=== PATIENT | female | born 1995 | race Caucasian/White ===

== ENCOUNTER → 2019-10-05 | Outpatient (CLI) | payer OTHER ==
--- NOTE | 2019-10-06 22:28 | CT ---
EXAMINATION TYPE: CT brain w con DATE OF EXAM: 10/05/2019 COMPARISON: CT brain July 10, 2010. HISTORY: Head pressure. Complicated headaches with nausea and vomiting. CT DLP: 999.8 mGycm. Automated Exposure Control for Dose Reduction was Utilized. TECHNIQUE: CT scan of the head is performed with IV Contrast, patient injected with 100 mL of Isovu e 300. FINDINGS: The ventricles and sulci are within normal limits in size. Vivar-white matter differentiat ion is maintained. Postcontrast images show no suspicious enhancing intraparenchymal mass. The globes are intact and the visualized sinuses are clear. There are low-lying cerebellar tonsils extending at least to the level of foramen magnum on the left axial images obtained. IMPRESSION: Cannot rule out underlying Chiari type I malformation. Consider follow-up MRI to better e valuate.
== END | disposition home or self-care (01) ==
LOC: RADCTMAIN 08:39
PROVIDERS: ATTEND Family Medicine
DX: G44.59 Other complicated headache syndrome (principal); R11.2 Nausea with vomiting, unspecified
CPT/HCPCS: 70460; Q9967

== ENCOUNTER 2019-10-09 13:37 | Observation (INO) | payer OTHER ==
[2019-10-09] MEDS ORDERED: MORPHINE SULFATE 4 MG/ML SYRINGE IVP STA ×2 (14:13→18:15)
[2019-10-09] MEDS ORDERED: SODIUM CHLORIDE 0.9% 1,000 ML IV ONE (14:13)
[2019-10-09] MEDS ORDERED: ONDANSETRON 4 MG/2 ML VIAL IVP STA (14:13)
[2019-10-09] MEDS ORDERED: KETOROLAC 30 MG/ML 1 ML VIAL IVP STA (14:13)
[2019-10-09] MEDS: SODIUM CHLORIDE 0.9% 1,000 ML IV SCH (14:29)
[2019-10-09 14:36] LABS: Appearance,Urine Clear (Clear); Bilirubin,Urine Negative (Negative); Blood,Urine Negative (Negative); Color,Urine Yellow; Glucose,Urine (UA) Negative (Negative); Ketones,Urine Trace (Negative); Leukocyte Esterase,Urine Negative (Negative); Nitrite,Urine Negative (Negative); Protein,Urine Negative (Negative); Specific Gravity,Urine 1.013 (1.001-1.035); Urobilinogen,Urine <2.0 mg/dL (<2.0)
[2019-10-09 14:40] LABS: Basophils # (A) 0.1 k/uL (0-0.2); Basophils % (A) 0 %; Eosinophils # (A) 0.1 k/uL (0-0.7); Eosinophils % (A) 1 %; HCT 42.7 % (34.0-46.0); HGB 14.6 gm/dL (11.4-16.0); Lymphocytes # (A) 2.1 k/uL (1.0-4.8); Lymphocytes % (A) 12 %; MCH 32.5 pg (25.0-35.0); MCHC 34.2 g/dL (31.0-37.0); MCV 95.1 fL (80.0-100.0); Mean Platelet Volume 7.5; Monocytes # (A) 0.7 k/uL (0-1.0); Monocytes % (A) 4 %; Neutrophils # (A) 14.5 k/uL (1.3-7.7); Neutrophils % (A) 83 %; Platelet Count 370 k/uL (150-450); RBC 4.49 m/uL (3.80-5.40); WBC 17.5 k/uL (3.8-10.6)
[2019-10-09 14:49] LABS: ALT 22 U/L (4-34); AST 24 U/L (14-36); African American GFR (CKD) >90 (>60 ml/min/1.73 sqM); Albumin 4.4 g/dL (3.5-5.0); Alkaline Phosphatase 56 U/L (38-126); Amylase 49 U/L (30-110); Anion Gap 6 mmol/L; Blood Urea Nitrogen 9 mg/dL (7-17); Calcium 9.4 mg/dL (8.4-10.2); Carbon Dioxide 26 mmol/L (22-30); Chloride 107 mmol/L (98-107); Glucose 97 mg/dL (74-99); Non-African American GFR(CKD) >90 (>60 ml/min/1.73 sqM); Potassium 4.3 mmol/L (3.5-5.1); Sodium 139 mmol/L (137-145); Total Bilirubin 0.5 mg/dL (0.2-1.3); Total Protein 7.3 g/dL (6.3-8.2)
[2019-10-09 14:51] LABS: INR 0.9 (<1.2); Partial Thromboplastin Time 26.3 sec (22.0-30.0); Prothrombin Time 10.1 sec (9.0-12.0)
--- NOTE | 2019-10-09 15:06 | ED ---
Abdominal Pain HPI - General Chief Complaint: Abdominal Pain Stated Complaint: Abd Pain Time Seen by Provider: 10/09/19 14:06 Source: patient, RN notes reviewed, old records reviewed Mode of arrival: ambulatory Limitations: no limitations - History of Present Illness Initial Comments: Patient is a 24-year-old female who presents emergency Department today with diffuse guarding and abdominal pain. She reports it feels like a sharp stabbing pain on her right lower side. Complains of nausea and vomiting as well. Denies any changes in urination. Patient states that she's had no specific fever that she is aware of. - Related Data Home Medications Medication Instructions Recorded Confirmed Amoxic-Pot Clav 500-125 mg 1 tab PO BID 10/09/19 10/09/19 [Augmentin 500-125 mg] Aspirin/Acetaminophen/Caffeine 1 - 2 tab PO DAILY PRN 10/09/19 10/09/19 [Excedrin Migraine Caplet] Allergies Allergy/AdvReac Type Severity Reaction Status Date / Time No Known Allergies Allergy Verified 10/09/19 16:34 Review of Systems ROS Statement: Those systems with pertinent positive or pertinent negative responses have been documented in the HPI. ROS Other: All systems not noted in ROS Statement are negative. Past Medical History Past Medical History: No Reported History Additional Past Medical History / Comment(s): Obstetric history: She has had 2 previous normal vaginal deliveries. This is her third . A+, abs neg, Rub Imm, RPR NR, Hep B neg, HIV NR, toxo neg. normal 1hr GTT. She has been measuring small but NSTs have been reactive and 8/8 BPPs with MFM. GBS neg. History of Any Multi-Drug Resistant Organisms: None Reported Past Surgical History: No Surgical Hx Reported Past Anesthesia/Blood Transfusion Reactions: No Reported Reaction Past Psychological History: No Psychological Hx Reported Smoking Status: Current every day smoker Past Alcohol Use History: None Reported Past Drug Use History: None Reported General Exam - General Exam Comments Initial Comments: 24-year-old female. Moderate discomfort. Tearful. Limitations: no limitations Head exam: Present: atraumatic, normocephalic, normal inspection Eye exam: Present: normal appearance, PERRL, EOMI. Absent: scleral icterus, conjunctival injection, periorbital swelling ENT exam: Present: normal exam, mucous membranes moist Neck exam: Present: tenderness Respiratory exam: Present: normal lung sounds bilaterally. Absent: respiratory distress, wheezes, rales, rhonchi, stridor Cardiovascular Exam: Present: regular rate, normal rhythm, normal heart sounds. Absent: systolic murmur, diastolic murmur, rubs, gallop, clicks GI/Abdominal exam: Present: soft, tenderness (RLQ, guatdring ), normal bowel sounds. Absent: distended, guarding, rebound, rigid Extremities exam: Present: normal inspection, full ROM, normal capillary refill. Absent: tenderness, pedal edema, joint swelling, calf tenderness Back exam: Present: normal inspection Neurological exam: Present: alert, oriented X3, CN II-XII intact Psychiatric exam: Present: normal affect, normal mood Skin exam: Present: warm, dry, intact, normal color. Absent: rash Course Vital Signs 10/09/19 10/09/19 13:38 16:18 Temperature 98.2 F Pulse Rate 81 94 Respiratory 16 18 Rate Blood Pressure 132/88 109/58 O2 Sat by Pulse 99 98 Oximetry Medical Decision Making - Medical Decision Making Patient is a 24 old female presents to return today with severe right-sided abdominal pain for the past 2 days. She guarding and tenderness on exam. Nourished, clinical concern for appendicitis. Urinalysis is negative for infection. HCG is negative. Patient's CBC is elevated. Blood cultures are obtained. Her pelvic exam was benign. No significant adnexal tenderness. No significant discharge. Pelvic cultures were obtained. I discussed this with Dr. Contreras after CAT scan shows inflammation around the cecum concern for possibility of appendicitis. However patient's appendix is reviewed to be normal on the CT. She did recommend putting the Patient on antibiotics and admitting the Patient patient's primary care physician. I am waiting call from Dr. Hussein. I did discuss the case with Dr. Ji for case management. - Lab Data Result diagrams: 10/09/19 14:10 10/09/19 14:10 Lab Results 10/09/19 10/09/19 10/09/19 Range/Units 14:10 14:10 14:10 WBC 17.5 H (3.8-10.6) k/uL RBC 4.49 (3.80-5.40) m/uL Hgb 14.6 (11.4-16.0) gm/dL Hct 42.7 (34.0-46.0) % MCV 95.1 (80.0-100.0) fL MCH 32.5 (25.0-35.0) pg MCHC 34.2 (31.0-37.0) g/dL RDW 12.0 (11.5-15.5) % Plt Count 370 (150-450) k/uL Neutrophils % 83 % Lymphocytes % 12 % Monocytes % 4 % Eosinophils % 1 % Basophils % 0 % Neutrophils # 14.5 H (1.3-7.7) k/uL Lymphocytes # 2.1 (1.0-4.8) k/uL Monocytes # 0.7 (0-1.0) k/uL Eosinophils # 0.1 (0-0.7) k/uL Basophils # 0.1 (0-0.2) k/uL PT 10.1 (9.0-12.0) sec INR 0.9 (<1.2) APTT 26.3 (22.0-30.0) sec Sodium 139 (137-145) mmol/L Potassium 4.3 (3.5-5.1) mmol/L Chloride 107 (98-107) mmol/L Carbon Dioxide 26 (22-30) mmol/L Anion Gap 6 mmol/L BUN 9 (7-17) mg/dL Creatinine 0.64 (0.52-1.04) mg/dL Est GFR (CKD-EPI)AfAm >90 (>60 ml/min/1.73 sqM) Est GFR (CKD-EPI)NonAf >90 (>60 ml/min/1.73 sqM) Glucose 97 (74-99) mg/dL Calcium 9.4 (8.4-10.2) mg/dL Total Bilirubin 0.5 (0.2-1.3) mg/dL AST 24 (14-36) U/L ALT 22 (4-34) U/L Alkaline Phosphatase 56 (38-126) U/L Total Protein 7.3 (6.3-8.2) g/dL Albumin 4.4 (3.5-5.0) g/dL Amylase 49 (30-110) U/L Lipase 58 (23-300) U/L Urine Color Urine Appearance (Clear) Urine pH (5.0-8.0) Ur Specific [place] (1.001-1.035) Urine Protein (Negative) Urine Glucose (UA) (Negative) Urine Ketones (Negative) Urine Blood (Negative) Urine Nitrite (Negative) Urine Bilirubin (Negative) Urine Urobilinogen (<2.0) mg/dL Ur Leukocyte Esterase (Negative) Urine HCG, Qual (Not Detectd) 10/09/19 10/09/19 Range/Units 14:10 14:10 WBC (3.8-10.6) k/uL RBC (3.80-5.40) m/uL Hgb (11.4-16.0) gm/dL Hct (34.0-46.0) % MCV (80.0-100.0) fL MCH (25.0-35.0) pg MCHC (31.0-37.0) g/dL RDW (11.5-15.5) % Plt Count (150-450) k/uL Neutrophils % % Lymphocytes % % Monocytes % % Eosinophils % % Basophils % % Neutrophils # (1.3-7.7) k/uL Lymphocytes # (1.0-4.8) k/uL Monocytes # (0-1.0) k/uL Eosinophils # (0-0.7) k/uL Basophils # (0-0.2) k/uL PT (9.0-12.0) sec INR (<1.2) APTT (22.0-30.0) sec Sodium (137-145) mmol/L Potassium (3.5-5.1) mmol/L Chloride (98-107) mmol/L Carbon Dioxide (22-30) mmol/L Anion Gap mmol/L BUN (7-17) mg/dL Creatinine (0.52-1.04) mg/dL Est GFR (CKD-EPI)AfAm (>60 ml/min/1.73 sqM) Est GFR (CKD-EPI)NonAf (>60 ml/min/1.73 sqM) Glucose (74-99) mg/dL Calcium (8.4-10.2) mg/dL Total Bilirubin (0.2-1.3) mg/dL AST (14-36) U/L ALT (4-34) U/L Alkaline Phosphatase (38-126) U/L Total Protein (6.3-8.2) g/dL Albumin (3.5-5.0) g/dL Amylase (30-110) U/L Lipase (23-300) U/L Urine Color Yellow Urine Appearance Clear (Clear) Urine pH 5.0 (5.0-8.0) Ur Specific [place] 1.013 (1.001-1.035) Urine Protein Negative (Negative) Urine Glucose (UA) Negative (Negative) Urine Ketones Trace H (Negative) Urine Blood Negative (Negative) Urine Nitrite Negative (Negative) Urine Bilirubin Negative (Negative) Urine Urobilinogen <2.0 (<2.0) mg/dL Ur Leukocyte Esterase Negative (Negative) Urine HCG, Qual Not Detected (Not Detectd) - Radiology Data Radiology results: report reviewed Some fluid around the cecum. If what appears to be panic seems normal. However clinical management for acute appendicitis is recommended. Minimal fluid within the pelvis could be physiologic. Uterus is normal. Adnexal regions appeared normal. Some free fluid within the pelvis. Disposition Clinical Impression: Acute abdominal pain in right lower quadrant, Leukocytosis Disposition: ADMITTED IP TO THIS [facility] Condition: Stable Is patient prescribed a controlled substance at d/c from ED?: No Referrals: Annalisa Li MD [Primary Care Provider] - 1-2 days Time of Disposition: 18:15
--- NOTE | 2019-10-09 15:53 | CT ---
EXAMINATION TYPE: CT abdomen pelvis w con DATE OF EXAM: 10/09/2019 COMPARISON: 12/20/2013 INDICATION: Pelvic pain for 2-3 days. DLP: 577.1 mGycm, Automated exposure control for dose reduction was used. CONTRAST: 100 mL of Isovue 300. Study performed without Oral Contrast TECHNIQUE: Axial images were obtained from above the diaphragm to the pubic rami in the axial plane a t 5 mm thick sections. Reconstructed images are reviewed on the computer in the coronal plane. FINDINGS: Limited CT sections are obtained the lung bases. The lung bases are clear. CT ABDOMEN: Liver: Normal Spleen: Normal Pancreas: Normal Adrenal glands: The adrenal glands are normal. Gallbladder: Normal Kidneys: No masses are evident. No hydronephrosis is present. No cysts are present. Delayed images were obtained through the kidneys, which remain unremarkable. Aorta: Normal Inferior vena cava: Normal. CT PELVIS: Loops of bowel within the abdomen and pelvis are normal. There are loops of bowel which are incom pletely distended or lack oral contrast limiting their evaluation. Appendix: Normal as visualized. There is fluid surrounding the cecum. Clinical management for appendi citis is recommended. It appears to be the appendix appears normal however. An air-filled appendix is not evident no dilated tubular structure inflammatory change is evident. Urinary bladder: Normal. Genitourinary structures: Uterus is normal. Adnexal regions appear within normal limits. There is barbara e free fluid within the pelvis. This can be physiologic. Osseous structures: No suspicious lytic or sclerotic lesion is evident. 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 IMPRESSIONS: 1. There is some fluid surrounding the cecum. What appears to be the appendix is normal. However, cl inical management for acute appendicitis is recommended. 2. Minimal fluid within the pelvis can be physiologic.
[2019-10-09] MEDS ORDERED: PIPERACILLIN-TAZOBACTAM 3.375 GM in SODIUM CHLORIDE 0.9% 100 ML IVPB STA (16:40)
[2019-10-09] MEDS ORDERED: NALOXONE 0.4 MG/ML 1 ML VIAL IV PRN (18:15)
[2019-10-09] MEDS ORDERED: IBUPROFEN 400 MG TAB PO PRN (18:15)
[2019-10-09] MEDS: MORPHINE SULFATE 4 MG/ML SYRINGE IV PRN (22:22)
[2019-10-09] MEDS: ONDANSETRON 4 MG/2 ML VIAL IVP PRN (22:22)
[2019-10-09] MEDS: ACETAMINOPHEN TAB 325 MG TAB PO PRN (22:27)
[2019-10-10] MEDS: SODIUM CHLORIDE 0.9% 1,000 ML IV SCH ×2 (03:04→16:59)
[2019-10-10] MEDS: KETOROLAC 30 MG/ML 1 ML VIAL IVP PRN ×2 (03:39→17:18)
[2019-10-10] MEDS: PIPERACILLIN-TAZOBACTAM 3.375 GM in SODIUM CHLORIDE 0.9% 100 ML IVPB SCH ×2 (08:51→17:22)
[2019-10-10] MEDS: PANTOPRAZOLE 40 MG/10 ML VIAL IV SCH (08:51)
[2019-10-10] MEDS: MORPHINE SULFATE 4 MG/ML SYRINGE IV PRN (08:52)
[2019-10-10] MEDS: ONDANSETRON 4 MG/2 ML VIAL IVP PRN (08:52)
[2019-10-10 10:01] LABS: Basophils % (A) 0 %; Eosinophils # (A) 0.2 k/uL (0-0.7); Eosinophils % (A) 1 %; HCT 37.2 % (34.0-46.0); HGB 12.4 gm/dL (11.4-16.0); Lymphocytes # (A) 2.2 k/uL (1.0-4.8); Lymphocytes % (A) 19 %; MCH 32.4 pg (25.0-35.0); MCHC 33.2 g/dL (31.0-37.0); MCV 97.7 fL (80.0-100.0); Mean Platelet Volume 8.2; Monocytes # (A) 0.6 k/uL (0-1.0); Monocytes % (A) 5 %; Neutrophils # (A) 8.6 k/uL (1.3-7.7); Neutrophils % (A) 73 %; Platelet Count 278 k/uL (150-450); RBC 3.81 m/uL (3.80-5.40); RDW 12.2 % (11.5-15.5); WBC 11.8 k/uL (3.8-10.6)
[2019-10-10 10:11] LABS: ALT 16 U/L (4-34); AST 20 U/L (14-36); African American GFR (CKD) >90 (>60 ml/min/1.73 sqM); Albumin 3.2 g/dL (3.5-5.0); Alkaline Phosphatase 48 U/L (38-126); Anion Gap 6 mmol/L; Blood Urea Nitrogen 8 mg/dL (7-17); Calcium 8.6 mg/dL (8.4-10.2); Carbon Dioxide 24 mmol/L (22-30); Chloride 110 mmol/L (98-107); Glucose 94 mg/dL (74-99); Non-African American GFR(CKD) >90 (>60 ml/min/1.73 sqM); Potassium 3.9 mmol/L (3.5-5.1); Sodium 140 mmol/L (137-145); Total Bilirubin 0.5 mg/dL (0.2-1.3); Total Protein 5.7 g/dL (6.3-8.2)
--- NOTE | 2019-10-10 10:28 | P.HPIM ---
History of Present Illness H&P Date: 10/10/19 This is a 24-year-old female patient of Dr. Li. Patient presented to the ER with complaints of right lower quadrant pain that is described as sharp and stabbing with nausea and vomitingthat started on Monday. Patient denies any recent fever or sick contacts. Patient denies diarrhea. Patient denies any burning with urination. Patient denies any significant medical history. Patient does have 3 children at home and current nicotine dependence. CT of abdomen and pelvis completed showing some fluid surrounding the cecum. What appears to be the appendix is normal however clinical management for acute appendicitis is recommended minimal fluid within the pelvis can be physiologic. Per ER note these results were reviewed with Dr. Contreras no need for appendectomy at that time. amylase and lipase within normal limits liver enzymes within normal limits. Per nursing staff patient requesting Dr. quintanilla of Dr. Contreras. Dr. quintanilla unavailable. Consult placed for Dr. hankins per surgical consult. Patient has been started on Zosyn for IV antibiotics. Patient did have a white blood cell count of 17.5. UA was negative for urinary tract infection patient was tested for STI including trichomonas which was negative. Gonorrhea and chlamydia currently pending blood culture has been or dered. At this time patient is still having right lower quadrant pain and tenderness to palpation patient is managed with morphine for pain control. Diet will be advanced to clear liquid diet. Awaiting surgical input. Patient denies chest pain or shortness of breath. Patient denies any urinary burning or frequency. Plan of care was discussed in detail with patient. Review of Systems please refer to HPI otherwise unremarkable Past Medical History Past Medical History: No Reported History Additional Past Medical History / Comment(s): Obstetric history: She has had 2 previous normal vaginal deliveries. This is her third . A+, abs neg, Rub Imm, RPR NR, Hep B neg, HIV NR, toxo neg. normal 1hr GTT. She has been measuring small but NSTs have been reactive and 8/8 BPPs with MFM. GBS neg. History of Any Multi-Drug Resistant Organisms: None Reported Past Surgical History: No Surgical Hx Reported Past Anesthesia/Blood Transfusion Reactions: No Reported Reaction Past Psychological History: No Psychological Hx Reported Smoking Status: Current every day smoker Past Alcohol Use History: None Reported Past Drug Use History: None Reported Medications and Allergies Home Medications Medication Instructions Recorded Confirmed Type Amoxic-Pot Clav 500-125 mg 1 tab PO BID 10/09/19 10/09/19 History [Augmentin 500-125 mg] Aspirin/Acetaminophen/Caffeine 1 - 2 tab PO DAILY PRN 10/09/19 10/09/19 History [Excedrin Migraine Caplet] Allergies Allergy/AdvReac Type Severity Reaction Status Date / Time No Known Allergies Allergy Verified 10/09/19 16:34 Physical Exam Vitals: Vital Signs Temp Pulse Pulse Resp BP BP Pulse Ox 10/10/19 07:00 98.3 F 63 17 96/44 98 10/10/19 01:59 97.8 F 112 H 16 124/66 98 10/09/19 21:38 98.3 F 78 16 129/65 95 10/09/19 20:35 83 18 102/58 98 10/09/19 16:18 94 18 109/58 98 10/09/19 13:38 98.2 F 81 16 132/88 99 Intake and Output 10/09/19 10/10/19 10/10/19 22:59 06:59 14:59 Intake Total 150 800 Balance 150 800 Intake: Intake, IV Titration 150 800 Amount Sodium Chloride 0.9% 1, 150 800 000 ml @ 100 mls/hr IV . Q10H [facility] Rx#:[id number] Other: Weight 53.977 kg Head normocephalic Neck supple Lungs clear to auscultation bilaterally no wheezing or crackles Heart regular rate and rhythm S1-S2, no rub or gallop Abdomen is soft, right lower quadrant tenderness to palpation nondistended positive bowel sounds no hepatosplenomegaly Extremities no edema Neuro alert and orientated to 3 Results CBC & Chem 7: 10/10/19 05:47 10/10/19 05:47 Labs: Abnormal Lab Results - Last 24 Hours (Table) 10/09/19 10/09/19 10/10/19 Range/Units 14:10 14:10 05:47 WBC 17.5 H 11.8 H (3.8-10.6) k/uL Neutrophils # 14.5 H 8.6 H (1.3-7.7) k/uL Chloride (98-107) mmol/L Total Protein (6.3-8.2) g/dL Albumin (3.5-5.0) g/dL Urine Ketones Trace H (Negative) 10/10/19 Range/Units 05:47 WBC (3.8-10.6) k/uL Neutrophils # (1.3-7.7) k/uL Chloride 110 H (98-107) mmol/L Total Protein 5.7 L (6.3-8.2) g/dL Albumin 3.2 L (3.5-5.0) g/dL Urine Ketones (Negative) Microbiology - Last 24 Hours (Table) 10/09/19 17:56 Genital Culture - Preliminary Vaginal Thrombosis Risk Factor Assmnt - Choose All That Apply Any of the Below Risk Factors Present?: No Other Risk Factors: No Other congenital or acquired thrombophilia - If yes, enter type in comment: No Thrombosis Risk Factor Assessment Level: Very Low Risk Assessment and Plan Assessment: 1. Acute right abdominal pain with leukocytosis. Amylase and lipase within normal limi initial white blood cell 17.5. UA negative for infection.cT of abdomen and pelvis completed showing some fluid surrounding the cecum. What appears be the appendix is normal. However clinical management for acute ap pendicitis is recommended. Minimum fluid within the pelvis can be physiologic. Patient requesting Dr. Quintanilla to be consulted Dr. quintanilla unavailable Dr. Hatch has been consulted. Patient has been started on Zosyn for IV antibiotics blood culture has been ordered. white blood cell has improved to 11.8. 2. History of 3 normal vaginal deliveries 3. Nicotine dependence. Patient educated greater than 3 minutes smoking cessation.patient declined nicotine patch at this time DVT prophylaxis SCDs until cleared by surgical services. GI prophylaxis Protonix continue IV antibiotics Zosyn Surgical services have been consulted Blood culture pending Time with Patient: Greater than 30 (Greater than 60% of the total time spent in counseling and coordination of care. I performed an examination of the patient and discussed their management with the Nurse Practitioner. I have reviewed the Nurse Practitioner's notes and agree with the documented findings and plan of care)
[2019-10-10] MEDS ORDERED: SODIUM CHLORIDE 0.9% 1,000 ML IV ONE (12:06)
--- NOTE | 2019-10-10 13:08 | US ---
EXAMINATION TYPE: US transvaginal DATE OF EXAM: 10/10/2019 COMPARISON: CT 10/09/19 CLINICAL HISTORY: right lower abdominal pain, possible ovarian cyst. TECHNIQUE: Transvaginal (TV). Transabdominal sonographic images of the pelvis were acquired. Trans vaginal sonographic images were medically necessary to better assess the following anatomy: Date of LMP: 09/11/2019 EXAM MEASUREMENTS: Uterus: 8.7 x 5.0 x 4.1 cm Endometrial Stripe: 0.6 cm Right Ovary: 2.8 x 2.3 x 1.8 cm Left Ovary: 2.2 x 1.9 x 1.6 cm 1. Uterus: Anteverted wnl 2. Endometrium: wnl 3. Right Ovary: wnl, with adjacent free fluid 4. Left Ovary: wnl Spectral, color and waveform doppler imaging shows good arterial and venous flow within the ovaries ; there is no evidence for ovarian torsion. 5. Bilateral Adnexa: wnl 6. Posterior cul-de-sac: Tiny amount of free fluid IMPRESSION: Scant amount of fluid in the pelvis, likely physiologic in nature. This may be sequela of a recently ruptured ovarian cyst. Otherwise unremarkable pelvic ultrasound.
[2019-10-10 15:03] LABS: C. trachomatis,PCR Negative (Neg,Equiv); Chlamydia trachomatis Source Cervix; N. gonorrhoeae,PCR Negative (Neg,Equiv); Neisseria Source Cervix
--- NOTE | 2019-10-10 15:09 | P.PN ---
<Esmer Lobo - Last Filed: 10/10/19 15:02> Subjective Progress Note Date: 10/10/19 CHIEF COMPLAINT: right lower quadrant abdominal pain HISTORY OF PRESENT ILLNESS: Patient seen and examined at the bedside with Dr. Lindsey. Patient reports improvement and right lower quadrant abdominal pain today. She denies nausea or vomiting.vital signs are stable. She is afebrile. WBC 11.8. PHYSICAL EXAM: VITAL SIGNS: reviewed GENERAL: Well-developed in no acute distress. HEENT: No sclera icterus. Extraocular movements grossly intact. Moist buccal mucosa. Head is atraumatic, normocephalic. Hears conversational speech. No nasal drainage. NECK: Supple without lymphadenopathy. CHEST: Non-labored respirations and equal bilateral excursions. CARDIOVASCULAR: Regular rate with regular rhythm. Palpable 2+ radial pulses. ABDOMEN: Soft. Nondistended. minimal tenderness upon palpation of right lower quadrant MUSCULOSKELETAL: No clubbing, cyanosis or edema. NEUROLOGIC: No focal or lateralizing signs. Cranial nerves II through XII grossly intact. PSYCH: Appropriate affect. Alert and oriented to person, place and time. SKIN: Well perfused. Good skin turgor. ASSESSMENT: 1. Right lower quadrant abdominal pain, acute appendicitis unlikely, suspect ruptured ovarian cyst PLAN: -Pain control. Add Toradol -1 L normal saline bolus -Increase diet as tolerated -Obtain transvaginal ultrasound -No surgical intervention recommended at this time. Patient agreeable to plan. Nurse practitioner note has been reviewed by physician. Signing provider agrees with the documented findings, assessment, and plan of care. Objective - Vital Signs Vital signs: Vital Signs Temp 98.3 F 10/10/19 07:00 Pulse 63 10/10/19 07:00 Resp 17 10/10/19 07:00 BP 96/44 10/10/19 07:00 Pulse Ox 98 10/10/19 07:00 Intake & Output 10/09/19 10/10/19 10/10/19 18:59 06:59 18:59 Intake Total 950 Balance 950 Weight 53.977 kg 53.977 kg Intake: Intake, IV Titration 950 Amount Sodium Chloride 0.9% 1, 950 000 ml @ 100 mls/hr IV . Q10H [facility] Rx#:[id number] - Labs CBC & Chem 7: 10/10/19 05:47 10/10/19 05:47 Labs: Abnormal Lab Results - Last 24 Hours (Table) 10/10/19 10/10/19 Range/Units 05:47 05:47 WBC 11.8 H (3.8-10.6) k/uL Neutrophils # 8.6 H (1.3-7.7) k/uL Chloride 110 H (98-107) mmol/L Total Protein 5.7 L (6.3-8.2) g/dL Albumin 3.2 L (3.5-5.0) g/dL Microbiology - Last 24 Hours (Table) 10/09/19 17:56 Genital Culture - Preliminary Vaginal <Jessica Lindsey N - Last Filed: 10/19/19 18:30> Subjective As above. Her abdominal pain is improved. Objective - Vital Signs Vital signs: Vital Signs Temp 98.3 F 10/11/19 07:00 Pulse 76 10/11/19 08:00 Resp 15 10/11/19 08:00 BP 107/68 10/11/19 07:00 Pulse Ox 99 10/11/19 07:00 - Labs CBC & Chem 7: 10/11/19 08:26 10/11/19 08:26 Assessment and Plan (1) Mittelschmerz Status: Acute Code(s): N94.0 - MITTELSCHMERZ SNOMED Code(s): 83456698 (2) Right lower quadrant abdominal pain Status: Acute Code(s): R10.31 - RIGHT LOWER QUADRANT PAIN SNOMED Code(s): 653860308 (3) Ovarian cyst rupture Status: Acute Code(s): N83.209 - UNSPECIFIED OVARIAN CYST, UNSPECIFIED SIDE SNOMED Code(s): 41012355 (4) Rupture of cyst of right ovary Status: Acute Code(s): N83.201 - UNSPECIFIED OVARIAN CYST, RIGHT SIDE SNOMED Code(s): 13792209002754248
[2019-10-10] MEDS: ACETAMINOPHEN TAB 325 MG TAB PO PRN (21:33)
[2019-10-11] MEDS: PIPERACILLIN-TAZOBACTAM 3.375 GM in SODIUM CHLORIDE 0.9% 100 ML IVPB SCH ×2 (00:35→08:03)
[2019-10-11] MEDS: KETOROLAC 30 MG/ML 1 ML VIAL IVP PRN (00:35)
[2019-10-11] MEDS: SODIUM CHLORIDE 0.9% 1,000 ML IV SCH (02:04)
[2019-10-11] MEDS ORDERED: KETOROLAC 30 MG/ML 1 ML VIAL IVP SCH (07:00)
[2019-10-11 07:38] VITALS: BP 107/68; PULSE 76; RESP 15; TEMP 98.3
--- NOTE | 2019-10-11 08:03 | P.PN ---
Subjective Progress Note Date: 10/11/19 CHIEF COMPLAINT: Right lower quadrant abdominal pain HISTORY OF PRESENT ILLNESS: The patient is a 24-year-old female who was admitted secondary to intractable right lower quadrant abdominal pain. Yesterday she completed a transvaginal ultrasound. She also confirms she is started her menstrual cycle last night. Abdominal pain is completely resolved. She feels well. She is eager to go home. ROS: No reports of nausea and vomiting. No fevers or chills. No new chest pain. No productive sputum PHYSICAL EXAM: VITAL SIGNS: Reviewed CONSTITUTIONAL: Well developed and in no acute distress. EYES: Conjuctivae without sclera icterus. Extraocular movements grossly intact. HEAD, EARS, NOSE, THROAT: Moist buccal mucosa. Head is atraumatic, normocephalic. Hears conversational speech. No nasal drainage. RESPIRATORY: Non-labored respirations and equal bilateral excursions. CARDIOVASCULAR: Palpable 2+ radial pulses. Regular rate. Regular rhythm. ABDOMEN: No peritonitis MUSCULOSKELETAL: No gross deformity of the lower extremities noted. No clubbing. No cyanosis. SKIN: Good skin turgor. Well perfused. NEUROLOGIC: Cranial nerves I through XII grossly intact. No focal or lateralizing signs. PSYCH: Appropriate affect. Alert and oriented to person, place and time. CLINICAL LABS: White blood cell count down from over 17,000 to 11,000+ yesterday. Ultrasound: Rransvaginal ultrasound independently revieweluding report a likely ruptured ovarian cyst. Physiologic fluid found within the cul-de-sac. STUDIES: CT of the abdomen pelvis independent review confirms normal appendix without dilation. Appendix complete opacified consistent with normal appendix. CT report also reviewed and confirms normal appendix. ASSESSMENT: 1. Right lower quadrant abdominal pain, intractable now resolved 2. Ruptured right ovarian cyst 3. Carmelina, right side PLAN: 1. She has clinically improved 2. Agreeable with discharge 3. Follow up as needed. 4. Continue NSAIDs upon discharge Objective - Vital Signs Vital signs: Vital Signs Temp 98.3 F 10/11/19 07:00 Pulse 76 10/11/19 07:00 Resp 15 10/11/19 07:00 BP 107/68 10/11/19 07:00 Pulse Ox 99 10/11/19 07:00 Intake & Output 10/10/19 10/11/19 10/11/19 18:59 06:59 18:59 Intake Total 200 Balance 200 Intake: Intake, IV Titration 200 Amount Sodium Chloride 0.9% 1, 200 000 ml @ 100 mls/hr IV . Q10H LOUISA Rx#:[id number] Other: # Voids 1 2 - Labs CBC & Chem 7: 10/10/19 05:47 10/10/19 05:47 Labs: Abnormal Lab Results - Last 24 Hours (Table) 10/10/19 10/10/19 Range/Units 05:47 05:47 WBC 11.8 H (3.8-10.6) k/uL Neutrophils # 8.6 H (1.3-7.7) k/uL Chloride 110 H (98-107) mmol/L Total Protein 5.7 L (6.3-8.2) g/dL Albumin 3.2 L (3.5-5.0) g/dL Assessment and Plan (1) Carmelina Current Visit: Yes Status: Acute Code(s): N94.0 - CARMELINA SNOMED Code(s): 84557632 (2) Right lower quadrant abdominal pain Current Visit: Yes Status: Acute Code(s): R10.31 - RIGHT LOWER QUADRANT PAIN SNOMED Code(s): 846344531 (3) Ovarian cyst rupture Current Visit: Yes Status: Acute Code(s): N83.209 - UNSPECIFIED OVARIAN CY ST, UNSPECIFIED SIDE SNOMED Code(s): 64762665 (4) Rupture of cyst of right ovary Current Visit: Yes Status: Acute Code(s): N83.201 - UNSPECIFIED OVARIAN CYST, RIGHT SIDE SNOMED Code(s): 59432283925115895
[2019-10-11] MEDS: PANTOPRAZOLE 40 MG/10 ML VIAL IV SCH (08:04)
[2019-10-11 09:14] LABS: Basophils % (A) 0 %; Eosinophils # (A) 0.2 k/uL (0-0.7); Eosinophils % (A) 2 %; HCT 39.5 % (34.0-46.0); Lymphocytes # (A) 2.5 k/uL (1.0-4.8); Lymphocytes % (A) 27 %; MCH 31.9 pg (25.0-35.0); MCHC 32.8 g/dL (31.0-37.0); MCV 97.3 fL (80.0-100.0); Mean Platelet Volume 7.8; Monocytes # (A) 0.3 k/uL (0-1.0); Monocytes % (A) 4 %; Neutrophils % (A) 66 %; Platelet Count 325 k/uL (150-450); RBC 4.06 m/uL (3.80-5.40); RDW 12.1 % (11.5-15.5); WBC 9.1 k/uL (3.8-10.6)
[2019-10-11 09:44] LABS: ALT 108 U/L (4-34); AST 96 U/L (14-36); African American GFR (CKD) >90 (>60 ml/min/1.73 sqM); Albumin 3.6 g/dL (3.5-5.0); Alkaline Phosphatase 63 U/L (38-126); Anion Gap 7 mmol/L; Blood Urea Nitrogen 6 mg/dL (7-17); Calcium 8.7 mg/dL (8.4-10.2); Carbon Dioxide 24 mmol/L (22-30); Chloride 111 mmol/L (98-107); Glucose 99 mg/dL (74-99); Non-African American GFR(CKD) >90 (>60 ml/min/1.73 sqM); Sodium 142 mmol/L (137-145); Total Bilirubin 0.5 mg/dL (0.2-1.3); Total Protein 6.2 g/dL (6.3-8.2)
--- NOTE | 2019-10-11 10:43 | P.DS ---
Providers Date of admission: 10/09/19 16:29 Expected date of discharge: 10/11/19 Attending physician: Karen Hussein Consults: 10/10/19 08:43 Consult Physician Routine Consulting Provider: Jessica Lindsey Consult Reason/Comments: CT scan inflammation around the appendix Do you want consulting provider notified?: Yes Primary care physician: Annalisa Li Hospital Course: Discharge diagnosis 1. Acute right abdominal pain with leukocytosis. Amylase and lipase within normal limi initial white blood cell 17.5. UA negative for infection.cT of abdomen and pelvis completed showing some fluid surrounding the cecum. What appears be the appendix is normal. However clinical management for acute appendicitis is recommended. Minimum fluid within the pelvis can be physiologic. Dr. Contreras only surgeon available to cover. Transvaginal ultrasound completed showing scant amount of fluid in the pelvis likely physiologic in nature. This may be sequela of a recently ruptured ovarian cyst otherwise unremarkable pelvic ultrasound. Per surgical services acute appendicitis unlikely highly suspect pain is from a ruptured ovarian cyst. Patient also started menstrual cycles on 10/10/2019. Pain has completely subsided. Patient has been tolerating diet. Blood culture negative Per surgical services patient may be discharged home. Continue NSAIDs for pain control white blood cell count has normalized. Will DC patient on Levaquin 500 for 5 days. 2. History of 3 normal vaginal deliveries 3. Nicotine dependence. Patient educated greater than 3 minutes smoking cessation.patient declined nicotine patch at this time Hospital course This is a 24-year-old female patient of Dr. Li. Patient presented to the ER with complaints of right lower quadrant pain that is described as sharp and stabbing with nausea and vomitingthat started on Monday. Patient denies any recent fever or sick contacts. Patient denies diarrhea. Patient denies any burning with urination. Patient denies any significant medical history. Patient does have 3 children at home and current nicotine dependence. CT of abdomen and pelvis completed showing some fluid surrounding the cecum. What appears to be the appendix is normal however clinical management for acute appendicitis is recommended minimal fluid within the pelvis can be physiologic. Per ER note these results were reviewed with Dr. Contreras no need for appendectomy at that time. amylase and lipase within normal limits liver enzymes within normal limits. Per nursing staff patient requesting Dr. quintanilla of Dr. Contreras. Dr. quintanilla unavailable. Consult placed for Dr. hankins per surgical consult. Patient has been started on Zosyn for IV antibiotics. Patient did have a white blood cell count of 17.5. UA was negative for urinary tract infection patient was tested for STI including trichomonas which was negative. Gonorrhea and chlamydia currently pending blood culture has been ordered. At this time patient is still having right lower quadrant pain and tenderness to palpation patient is managed with morphine for pain control. Diet will be advanced to clear liquid diet. Awaiting surgical input. Patient denies chest pain or shortness of breath. Patient denies any urinary burning or frequency. Plan of care was discussed in detail with patient. On 10/11/2019 patient is alert and oriented 3. Patient underwent transvaginal ultrasound yesterday. Transvaginal ultrasound completed showing scant amount of fluid in the pelvis likely physiologic in nature. This may be sequela of a recently ruptured ovarian cyst otherwise unremarkable pelvic ultrasound. Chlamydia gonorrhea and trichomonas negative. Per surgical services acute appendicitis unlikely suspect ruptured ovarian cyst as cause of pain. Patient's pain has subsided. Patient also started menstrual cycles on 10/10/2019. Per surgical services patient may be discharged home on NSAIDs for pain control. Patient instructed that if fever or pain present she is to return to ER for further evaluation. Patient has been afebrile white blood cell has returned to normal. Patient will be discharged on Levaquin for 5 days. I performed an examination of the patient and discussed their management with the Nurse Practitioner. I have reviewed the Nurse Practitioner's notes and agree with the documented findings and plan of care Patient Condition at Discharge: Stable Plan - Discharge Summary Discharge Rx Participant: Yes New Discharge Prescriptions: New Ibuprofen [Motrin] 600 mg PO Q8HR PRN #30 tab PRN Reason: Pain Levofloxacin 500 mg PO DAILY 5 Days #5 tablet Continue Aspirin/Acetaminophen/Caffeine [Excedrin Migraine Caplet] 1 - 2 tab PO DAILY PRN PRN Reason: Migraine Headache Discontinued Amoxic-Pot Clav 500-125 mg [Augmentin 500-125 mg] 1 tab PO BID Discharge Medication List Aspirin/Acetaminophen/Caffeine [Excedrin Migraine Caplet] 1 - 2 tab PO DAILY PRN 10/09/19 [History] Ibuprofen [Motrin] 600 mg PO Q8HR PRN #30 tab 10/11/19 [Rx] Levofloxacin 500 mg PO DAILY 5 Days #5 tablet 10/11/19 [Rx] Follow up Appointment(s)/Referral(s): Annalisa Li MD [Primary Care Provider] - 10/14/19 10:30 am Jessica Lindsey MD [STAFF PHYSICIAN] - As Needed Activity/Diet/Wound Care/Special Instructions: Activity as tolerated Diet heart healthy Discharge/Stand Alone Forms: Work/School Release, Work/School Release / Restrict Discharge Disposition: HOME SELF-CARE
== END 2019-10-11 11:12 | disposition home or self-care (01) ==
LOC: EC 13:37 → UNDOADMIN 16:29 → INTOOBSV 16:29 → 4SSUR 16:29 → UNDODISIN 10-11 11:12
PROVIDERS: ADMIT Internal Medicine; ATTEND Internal Medicine
DX: N83.201 Unspecified ovarian cyst, right side (principal); D72.829 Elevated white blood cell count, unspecified; N94.0 Mittelschmerz; G43.909 Migraine, unspecified, not intractable, without status migrainosus; F17.200 Nicotine dependence, unspecified, uncomplicated; Z71.6 Tobacco abuse counseling
CPT/HCPCS: 96376 ×4; 96361 ×3; 96366 ×2; 96375 ×2; 96365; 99285; 36415; 80053 ×3; 82150; 83690; 85025 ×3; 85610; 85730; 81003; 81025; 87040; 87808; 87491; 87591; 87070; 76830; 74177; G0378 ×3; J2543 ×3; J2270 ×2; J2405 ×2; J1885 ×3; C9113; Q9967

== ENCOUNTER → 2019-10-24 | Outpatient (CLI) | payer OTHER ==
--- NOTE | 2019-10-24 13:50 | MR ---
EXAMINATION TYPE: MR brain wo/w con DATE OF EXAM: 10/24/2019 COMPARISON: 10/05/2019 HISTORY: Headaches, head injury 9 yrs. ago, abn CT TECHNIQUE: Multiplanar, multisequence images of the brain and brainstem is performed without and with IV contras t, utilizing 5.5 mL intravenous Gadavist . FINDINGS: Diffusion weighted images demonstrate no evidence of a recent infarct or other diffusion ab normality. There is no extra-axial fluid collection or significant white matter signal abnormality. The ventricular system and cisternal spaces are normal in size and appearance. The brain volume is age appropriate. The cerebellar tonsils are peglike and there is 8 mm extent of the cerebellar tonsils past the forame n magnum. These abut the dorsal upper cervical spinal cord and narrow the foramen magnum. There is n o nataliya hydrocephalus nor transependymal edema. There is some motion artifact on the T2-weighted imag es mildly limiting evaluation for transependymal edema however. There is no partially empty sella tur cica seen. There is an expected amount of CSF/subarachnoid fluid surrounding the optic nerves. Post contrast images demonstrate no abnormal enhancement. The dural venous sinuses appear patent. The visualized sinuses demonstrate mild mucosal thickening of the maxillary sinuses and ethmoid sinuses with air-fluid level of the right maxillary sinus indicative of acute sinusitis. Frontal sinuses and sphenoid sinuses are well aerated. IMPRESSION: 1. MRI findings are compatible with Chiari malformation with 8 mm of tonsillar herniation and no curr ent hydrocephalus. There is narrowing of the foramen magnum. MRI cervical spine could assess for any associated cervical cord syrinx. 2. Mild paranasal sinus disease. 3. No abnormal intracranial enhancement.
== END | disposition home or self-care (01) ==
LOC: RADMRIMAIN 11:47
PROVIDERS: ATTEND Nurse Practitioner
DX: R94.02 Abnormal brain scan (principal)
CPT/HCPCS: 70553; A9585